=== PATIENT | male | born 1985 | race Two or more races ===

== ENCOUNTER 2022-09-30 07:44 | Emergency (ER) | payer OTHER ==
[~2022-09-30] VITALS: Ht 182.9 cm; Wt 108.9 kg
[~2022-09-30 07:44] MED LIST: ATEN25 PO
[2022-09-30 11:15] VITALS: BP 142/89
[2022-09-30] MEDS ORDERED: PRED20 PO (11:28)
[2022-09-30] MEDS ORDERED: ALBU90OI INH (11:28)
== END 2022-09-30 11:43 | disposition home or self-care (01) ==
LOC: ER 07:44
DX: J20.9 Acute bronchitis, unspecified (principal)
CPT/HCPCS: 71046; 94640; 94644; 94664; J2920